=== PATIENT | female | born 1960 | race African-American/Black ===

== ENCOUNTER 2018-05-28 10:56 | Inpatient (IN) | payer MEDICARE, OTHER ==
[2018-05-28] MEDS: SOD CHLORIDE 0.9% 500 ML IV (11:38)
[2018-05-28 12:21] LABS: WHITE BLOOD COUNT 5.1 10^3/ul (4.8-10.8)
[2018-05-28 12:21] LABS: ADD MAN DIFF? NO; BASOPHILS % 0.4 % (0.0-2.0); EOSINOPHILS % 0.6 % (0.0-7.0); HEMOGLOBIN 15.4 g/dl (12.0-16.0); LYMPHOCYTES # 2.3 10^3/ul (0.8-2.9); LYMPHOCYTES % 45.2 % (15.0-51.0); MEAN CORPUSCULAR HEMOGLOBIN 28.3 pg (29.0-33.0); MEAN CORPUSCULAR HGB CONC 34.2 g/dl (32.0-37.0); MEAN CORPUSCULAR VOLUME 82.7 fl (82.0-101.0); MEAN PLATELET VOLUME 10.2 fl (7.4-10.4); MONOCYTE # 0.6 10^3/ul (0.3-0.9); MONOCYTES % 11.6 % (0.0-11.0); NEUTROPHIL # 2.1 10^3/ul (1.6-7.5); NEUTROPHILS % 41.8 % (39.0-77.0); PLATELET COUNT 304 10^3/UL (140-415); RED BLOOD COUNT 5.44 10^6/ul (4.20-5.40); RED CELL DISTRIBUTION WIDTH 12.2 % (11.5-14.5)
[2018-05-28 12:37] LABS: ADD UMIC YES; UR ASCORBIC ACID NEGATIVE (NEGATIVE); UR BACTERIA FEW /HPF (NONE SEEN); UR BILIRUBIN (Dip) NEGATIVE (NEGATIVE); UR BLOOD (Dip) NEGATIVE (NEGATIVE); UR CLARITY SLIGHTLY CLOUDY (CLEAR); UR COLOR YELLOW (YELLOW); UR GLUCOSE (Dip) NEGATIVE (NEGATIVE); UR KETONES (Dip) NEGATIVE (NEGATIVE); UR LEUKOCYTE ESTERASE (Dip) 3+ Leu/ul (NEGATIVE); UR MUCUS FEW /HPF (NONE SEEN); UR NITRITE (Dip) NEGATIVE (NEGATIVE); UR NONSQUAMOUS EPITHELIAL CELL 3 /HPF (NONE SEEN); UR RBC 4 /HPF (0-5); UR SQUAMOUS EPITHELIAL CELL FEW /HPF (FEW); UR TOTAL PROTEIN (Dip) NEGATIVE (NEGATIVE); UR UROBILINOGEN (Dip) NEGATIVE (NEGATIVE); UR WBC 56 /HPF (0-5)
[2018-05-28 12:38] LABS: ANION GAP 15 (5-13); BLOOD UREA NITROGEN 16 mg/dl (7-20); CALCIUM 10.4 mg/dl (8.4-10.2); CARBON DIOXIDE 26 mmol/L (21-31); CHLORIDE 102 mmol/L (97-110); CREATININE 1.06 mg/dl (0.44-1.00); Estimated GFR > 60 mL/min (>60); GLUCOSE 93 mg/dl (70-220); POTASSIUM 3.8 mmol/L (3.5-5.1); SODIUM 143 mmol/L (135-144)
[2018-05-28 12:49] LABS: TROPONIN-I < 0.012 ng/ml (0.000-0.120)
[2018-05-28] MEDS ORDERED: ACETAMINOPHEN 325 MG TAB PO ×2 (14:00→18:00)
[2018-05-28] MEDS ORDERED: ONDANSETRON 4 MG INJ IV ×2 (14:00→18:00)
[2018-05-28] MEDS: VENLAFAXINE (XR) 75 MG CAP PO (18:00)
[2018-05-28] MEDS ORDERED: hydrALAzine 20 MG INJ IV (18:00)
[2018-05-28] MEDS: SOD CHLORIDE 0.9% 1,000 ML IV ×2 (18:38→21:30)
[2018-05-28 19:31] LABS: TROPONIN-I < 0.012 ng/ml (0.000-0.120)
[2018-05-28] MEDS ORDERED: LEVALBUTEROL (NEB) 0.63 MG/3 ML AMP HHN (20:00)
[2018-05-28] MEDS: CYCLOSPORINE 0.05% OPH DROPERETTE BOTH EYES (21:33)
[2018-05-28] MEDS: traMADol 50 MG TAB PO (21:33)
[2018-05-29 01:19] LABS: TROPONIN-I < 0.012 ng/ml (0.000-0.120)
[2018-05-29 05:35] LABS: ADD MAN DIFF? NO
[2018-05-29 05:59] LABS: ABNORMAL IP MESSAGE 1; BASOPHILS % 0.3 % (0.0-2.0); HEMATOCRIT 36.9 % (37.0-47.0); HEMOGLOBIN 12.3 g/dl (12.0-16.0); LYMPHOCYTES # 2.5 10^3/ul (0.8-2.9); MEAN CORPUSCULAR HEMOGLOBIN 28.3 pg (29.0-33.0); MEAN CORPUSCULAR HGB CONC 33.3 g/dl (32.0-37.0); MEAN CORPUSCULAR VOLUME 84.8 fl (82.0-101.0); MEAN PLATELET VOLUME 10.3 fl (7.4-10.4); MONOCYTE # 0.5 10^3/ul (0.3-0.9); MONOCYTES % 12.2 % (0.0-11.0); NEUTROPHILS % 24.2 % (39.0-77.0); PLATELET COUNT 250 10^3/UL (140-415); RED BLOOD COUNT 4.35 10^6/ul (4.20-5.40); RED CELL DISTRIBUTION WIDTH 12.2 % (11.5-14.5)
[2018-05-29 06:04] LABS: POSITIVE DIFF @See below
[2018-05-29] MEDS: PANTOPRAZOLE (EC) 40 MG TAB PO ×3 (06:30→19:33)
[2018-05-29 06:58] LABS: ALANINE AMINOTRANSFERASE 47 IU/L (13-69); ALBUMIN 3.6 g/dl (3.3-4.9); ALBUMIN/GLOBULIN RATIO 1.16; ALKALINE PHOSPHATASE 65 IU/L (42-121); ANION GAP 8 (5-13); ASPARTATE AMINO TRANSFERASE 39 IU/L (15-46); BILIRUBIN,INDIRECT 0.3 mg/dl (0-1.1); BILIRUBIN,TOTAL 0.3 mg/dl (0.2-1.3); BLOOD UREA NITROGEN 18 mg/dl (7-20); CALCIUM 9.3 mg/dl (8.4-10.2); CARBON DIOXIDE 31 mmol/L (21-31); CHLORIDE 104 mmol/L (97-110); CREATININE 1.01 mg/dl (0.44-1.00); Estimated GFR > 60 mL/min (>60); GLUCOSE 109 mg/dl (70-220); MAGNESIUM 1.9 mg/dl (1.7-2.5); POTASSIUM 3.9 mmol/L (3.5-5.1); SODIUM 143 mmol/L (135-144); TOTAL PROTEIN 6.7 g/dl (6.1-8.1)
[2018-05-29] MEDS: SOD CHLORIDE 0.9% 1,000 ML IV (07:36)
[2018-05-29] MEDS: VENLAFAXINE (XR) 75 MG CAP PO ×2 (08:36→11:59)
[2018-05-29] MEDS: CYCLOSPORINE 0.05% OPH DROPERETTE BOTH EYES ×3 (08:37→22:11)
[2018-05-29] MEDS: VERAPAMIL (SR) 240 MG TAB PO ×2 (09:59→12:53)
[2018-05-29] MEDS: traMADol 50 MG TAB PO ×2 (13:01→20:44)
[2018-05-29] MEDS: MAGNESIUM SULFATE 2 GM/50 ML 50 ML IVPB (17:59)
[2018-05-29] MEDS: POTASSIUM CHLORIDE (SR) 10 MEQ TAB PO (18:00)
[2018-05-30] MEDS: traMADol 50 MG TAB PO ×4 (04:34→23:55)
[2018-05-30 05:48] LABS: WHITE BLOOD COUNT 3.6 10^3/ul (4.8-10.8)
[2018-05-30 05:48] LABS: ABNORMAL IP MESSAGE 1; HEMATOCRIT 34.7 % (37.0-47.0); HEMOGLOBIN 11.6 g/dl (12.0-16.0); MEAN CORPUSCULAR HEMOGLOBIN 28.6 pg (29.0-33.0); MEAN CORPUSCULAR HGB CONC 33.4 g/dl (32.0-37.0); MEAN CORPUSCULAR VOLUME 85.5 fl (82.0-101.0); MEAN PLATELET VOLUME 10.1 fl (7.4-10.4); PLATELET COUNT 229 10^3/UL (140-415); RED BLOOD COUNT 4.06 10^6/ul (4.20-5.40); RED CELL DISTRIBUTION WIDTH 12.2 % (11.5-14.5)
[2018-05-30 05:50] LABS: ADD MAN DIFF? YES; POSITIVE DIFF @See below
[2018-05-30 06:03] LABS: IRON 72 ug/dl (35-150)
[2018-05-30 06:08] LABS: ANION GAP 7 (5-13); BLOOD UREA NITROGEN 18 mg/dl (7-20); CALCIUM 8.8 mg/dl (8.4-10.2); CARBON DIOXIDE 33 mmol/L (21-31); CHLORIDE 103 mmol/L (97-110); CREATININE 1.06 mg/dl (0.44-1.00); Estimated GFR > 60 mL/min (>60); GLUCOSE 127 mg/dl (70-220); POTASSIUM 4.1 mmol/L (3.5-5.1); SODIUM 143 mmol/L (135-144)
[2018-05-30 06:12] LABS: % IRON SATURATION 25 % SAT (22-52); TOTAL IRON BINDING CAPACITY 292 ug/dl (241-421)
[2018-05-30 06:16] LABS: MAGNESIUM 2.4 mg/dl (1.7-2.5)
[2018-05-30] MEDS: PANTOPRAZOLE (EC) 40 MG TAB PO ×3 (06:49→08:30)
[2018-05-30 07:16] LABS: FOLATE 3.9 ng/ml (2.8-20.0)
[2018-05-30 07:23] LABS: ANISOCYTOSIS 1+ (0-0); EOSINOPHILS % (M) 3 % (0-7); LYMPHOCYTES #M 2.3 10^3/ul (0.8-2.9); LYMPHOCYTES % (M) 65 % (15-51); MICROCYTOSIS 1+ (0-0); MONOCYTE #M 0.1 10^3/ul (0.3-0.9); MONOCYTES % (M) 5 % (0-11); PLATELET ESTIMATE NORMAL; SEGMENTED NEUTROPHILS (M) % 27 % (39-77); SMUDGE%M 25 % (0-0)
[2018-05-30] MEDS: VERAPAMIL (SR) 240 MG TAB PO (08:30)
[2018-05-30] MEDS: VENLAFAXINE (XR) 75 MG CAP PO (08:30)
[2018-05-30] MEDS: CYCLOSPORINE 0.05% OPH DROPERETTE BOTH EYES ×2 (09:00→20:45)
[2018-05-31 06:13] LABS: ADD MAN DIFF? NO
[2018-05-31 06:20] LABS: WHITE BLOOD COUNT 3.5 10^3/ul (4.8-10.8)
[2018-05-31 06:20] LABS: ABNORMAL IP MESSAGE 1; BASOPHILS % 0.3 % (0.0-2.0); EOSINOPHILS # 0.1 10^3/ul (0.0-0.5); EOSINOPHILS % 2.8 % (0.0-7.0); HEMOGLOBIN 11.8 g/dl (12.0-16.0); LYMPHOCYTES % 57.5 % (15.0-51.0); MEAN CORPUSCULAR HEMOGLOBIN 28.6 pg (29.0-33.0); MEAN CORPUSCULAR HGB CONC 33.7 g/dl (32.0-37.0); MEAN PLATELET VOLUME 10.2 fl (7.4-10.4); MONOCYTE # 0.4 10^3/ul (0.3-0.9); MONOCYTES % 10.8 % (0.0-11.0); NEUTROPHILS % 28.3 % (39.0-77.0); PLATELET COUNT 229 10^3/UL (140-415); RED BLOOD COUNT 4.12 10^6/ul (4.20-5.40); RED CELL DISTRIBUTION WIDTH 12.3 % (11.5-14.5)
[2018-05-31 06:34] LABS: POSITIVE DIFF @See below
[2018-05-31 06:55] LABS: ALANINE AMINOTRANSFERASE 39 IU/L (13-69); ALBUMIN 3.6 g/dl (3.3-4.9); ALBUMIN/GLOBULIN RATIO 1.28; ALKALINE PHOSPHATASE 60 IU/L (42-121); ANION GAP 9 (5-13); ASPARTATE AMINO TRANSFERASE 35 IU/L (15-46); BILIRUBIN,INDIRECT 0.2 mg/dl (0-1.1); BILIRUBIN,TOTAL 0.2 mg/dl (0.2-1.3); BLOOD UREA NITROGEN 19 mg/dl (7-20); CALCIUM 9.2 mg/dl (8.4-10.2); CARBON DIOXIDE 33 mmol/L (21-31); CHLORIDE 103 mmol/L (97-110); CREATININE 0.93 mg/dl (0.44-1.00); Estimated GFR > 60 mL/min (>60); GLUCOSE 91 mg/dl (70-220); MAGNESIUM 2.3 mg/dl (1.7-2.5); POTASSIUM 4.1 mmol/L (3.5-5.1); SODIUM 145 mmol/L (135-144); TOTAL PROTEIN 6.4 g/dl (6.1-8.1)
[2018-05-31] MEDS: VERAPAMIL (SR) 240 MG TAB PO (08:06)
[2018-05-31] MEDS: VENLAFAXINE (XR) 75 MG CAP PO (08:06)
[2018-05-31] MEDS: PANTOPRAZOLE (EC) 40 MG TAB PO (08:06)
[2018-05-31] MEDS: traMADol 50 MG TAB PO ×3 (08:08→20:47)
[2018-05-31] MEDS: CYCLOSPORINE 0.05% OPH DROPERETTE BOTH EYES (23:29)
[2018-06-01] MEDS: TRIAMCINOLONE ACET 0.1% 15 GM CR TOP ×2 (00:10→08:31)
[2018-06-01] MEDS: traMADol 50 MG TAB PO ×3 (02:34→15:13)
[2018-06-01 06:00] LABS: ADD MAN DIFF? NO
[2018-06-01 06:07] LABS: BASOPHILS % 0.3 % (0.0-2.0); EOSINOPHILS # 0.1 10^3/ul (0.0-0.5); EOSINOPHILS % 2.1 % (0.0-7.0); HEMATOCRIT 34.1 % (37.0-47.0); HEMOGLOBIN 11.4 g/dl (12.0-16.0); LYMPHOCYTES # 2.1 10^3/ul (0.8-2.9); LYMPHOCYTES % 55.7 % (15.0-51.0); MEAN CORPUSCULAR HEMOGLOBIN 28.4 pg (29.0-33.0); MEAN CORPUSCULAR HGB CONC 33.4 g/dl (32.0-37.0); MONOCYTE # 0.4 10^3/ul (0.3-0.9); MONOCYTES % 11.6 % (0.0-11.0); NEUTROPHIL # 1.1 10^3/ul (1.6-7.5); PLATELET COUNT 225 10^3/UL (140-415); RED BLOOD COUNT 4.01 10^6/ul (4.20-5.40)
[2018-06-01 06:07] LABS: WHITE BLOOD COUNT 3.8 10^3/ul (4.8-10.8)
[2018-06-01 06:52] LABS: ALANINE AMINOTRANSFERASE 36 IU/L (13-69); ALBUMIN 3.4 g/dl (3.3-4.9); ALBUMIN/GLOBULIN RATIO 1.17; ALKALINE PHOSPHATASE 68 IU/L (42-121); ANION GAP 9 (5-13); ASPARTATE AMINO TRANSFERASE 33 IU/L (15-46); BILIRUBIN,INDIRECT 0.2 mg/dl (0-1.1); BILIRUBIN,TOTAL 0.2 mg/dl (0.2-1.3); BLOOD UREA NITROGEN 23 mg/dl (7-20); CALCIUM 9.2 mg/dl (8.4-10.2); CARBON DIOXIDE 31 mmol/L (21-31); CHLORIDE 103 mmol/L (97-110); CREATININE 0.95 mg/dl (0.44-1.00); Estimated GFR > 60 mL/min (>60); GLUCOSE 120 mg/dl (70-220); POTASSIUM 3.8 mmol/L (3.5-5.1); SODIUM 143 mmol/L (135-144); TOTAL PROTEIN 6.3 g/dl (6.1-8.1)
[2018-06-01] MEDS: PANTOPRAZOLE (EC) 40 MG TAB PO (08:30)
[2018-06-01] MEDS: VERAPAMIL (SR) 240 MG TAB PO (08:30)
[2018-06-01] MEDS: VENLAFAXINE (XR) 75 MG CAP PO (08:30)
[2018-06-01] MEDS: MAGNESIUM OXIDE 400 MG TAB PO (09:51)
== END 2018-06-01 16:21 | disposition home or self-care (01) | DRG 312 ==
LOC: 6WM 05-29 19:37 → E/R 10:56 → 6WM 14:00
DX: R55 Syncope and collapse (principal); I47.1 Supraventricular tachycardia; N39.0 Urinary tract infection, site not specified; I10 Essential (primary) hypertension; E11.9 Type 2 diabetes mellitus without complications; E66.9 Obesity, unspecified; Z68.31 Body mass index [BMI] 31.0-31.9, adult; G25.3 Myoclonus; J45.909 Unspecified asthma, uncomplicated; L23.9 Allergic contact dermatitis, unspecified cause; M79.7 Fibromyalgia; H04.129 Dry eye syndrome of unspecified lacrimal gland; K21.9 Gastro-esophageal reflux disease without esophagitis; Z86.73 Personal history of transient ischemic attack (TIA), and cerebral infarction without residual deficits
CPT/HCPCS: 36415; 70450; 70551; 71045; 80048; 80053; 81001; 82607; 82746; 83540; 83735; 84443; 84484; 85025; 87086; 93005; 93306; 93880; 99285-25; G0378

== ENCOUNTER 2018-06-18 22:13 | Inpatient (IN) | payer MEDICARE, OTHER ==
[2018-06-19 00:42] LABS: ADD MAN DIFF? NO
[2018-06-19 00:46] LABS: BASOPHILS % 0.2 % (0.0-2.0); EOSINOPHILS # 0.1 10^3/ul (0.0-0.5); EOSINOPHILS % 1.2 % (0.0-7.0); HEMATOCRIT 41.6 % (37.0-47.0); HEMOGLOBIN 14.1 g/dl (12.0-16.0); LYMPHOCYTES # 2.5 10^3/ul (0.8-2.9); LYMPHOCYTES % 49.8 % (15.0-51.0); MEAN CORPUSCULAR HEMOGLOBIN 28.4 pg (29.0-33.0); MEAN CORPUSCULAR HGB CONC 33.9 g/dl (32.0-37.0); MEAN CORPUSCULAR VOLUME 83.7 fl (82.0-101.0); MONOCYTE # 0.5 10^3/ul (0.3-0.9); NEUTROPHIL # 1.9 10^3/ul (1.6-7.5); NEUTROPHILS % 38.4 % (39.0-77.0); PLATELET COUNT 319 10^3/UL (140-415); RED BLOOD COUNT 4.97 10^6/ul (4.20-5.40); RED CELL DISTRIBUTION WIDTH 11.9 % (11.5-14.5)
[2018-06-19 01:03] LABS: ALANINE AMINOTRANSFERASE 55 IU/L (13-69); ALBUMIN 4.6 g/dl (3.3-4.9); ALBUMIN/GLOBULIN RATIO 1.12; ALKALINE PHOSPHATASE 91 IU/L (42-121); ANION GAP 13 (5-13); ASPARTATE AMINO TRANSFERASE 48 IU/L (15-46); BILIRUBIN,INDIRECT 0.3 mg/dl (0-1.1); BILIRUBIN,TOTAL 0.3 mg/dl (0.2-1.3); BLOOD UREA NITROGEN 20 mg/dl (7-20); CALCIUM 9.9 mg/dl (8.4-10.2); CARBON DIOXIDE 28 mmol/L (21-31); CHLORIDE 102 mmol/L (97-110); CREATININE 1.05 mg/dl (0.44-1.00); Estimated GFR > 60 mL/min (>60); GLUCOSE 102 mg/dl (70-220); SODIUM 143 mmol/L (135-144); TOTAL PROTEIN 8.7 g/dl (6.1-8.1)
[2018-06-19 01:15] LABS: B-TYPE NATRIURETIC PEPTIDE 30 PG/ML (0-125); TROPONIN-I < 0.012 ng/ml (0.000-0.120)
[2018-06-19] MEDS: SOD CHLORIDE 0.9% 500 ML IV (02:54)
[2018-06-19] MEDS: traMADol 50 MG TAB PO ×2 (03:35→21:25)
[2018-06-19] MEDS ORDERED: ACETAMINOPHEN 325 MG TAB PO (07:00)
[2018-06-19] MEDS: PANTOPRAZOLE (EC) 40 MG TAB PO ×2 (07:07→07:12)
[2018-06-19 07:54] LABS: CREATINE KINASE 78 IU/L (23-200)
[2018-06-19 08:04] LABS: CK INDEX 0.7; CK-MB 0.57 ng/ml (0.0-2.4); TROPONIN-I < 0.012 ng/ml (0.000-0.120)
[2018-06-19] MEDS: VENLAFAXINE (XR) 37.5 MG CAP PO (08:22)
[2018-06-19] MEDS: HYDROCHLOROTHIAZIDE 25 MG TAB PO (08:22)
[2018-06-19 12:32] LABS: CREATINE KINASE 68 IU/L (23-200)
[2018-06-19 12:32] LABS: MAGNESIUM 2.3 mg/dl (1.7-2.5)
[2018-06-19 12:41] LABS: CK INDEX 0.8; CK-MB 0.53 ng/ml (0.0-2.4); TROPONIN-I < 0.012 ng/ml (0.000-0.120)
[2018-06-19] MEDS: CYCLOSPORINE 0.05% OPH DROPERETTE BOTH EYES (20:20)
[2018-06-19] MEDS: VERAPAMIL (SR) 240 MG TAB PO (20:24)
[2018-06-19] MEDS ORDERED: VERAPAMIL (SR) 240 MG TAB PO (21:00)
[2018-06-20] MEDS: CYCLOSPORINE 0.05% OPH DROPERETTE BOTH EYES (08:49)
[2018-06-20] MEDS: VENLAFAXINE (XR) 75 MG CAP PO (08:49)
[2018-06-20] MEDS: HYDROCHLOROTHIAZIDE 25 MG TAB PO (08:50)
[2018-06-20] MEDS: VERAPAMIL (SR) 240 MG TAB PO ×2 (08:50→20:20)
[2018-06-20 10:17] LABS: ANION GAP 12 (5-13); BLOOD UREA NITROGEN 19 mg/dl (7-20); CALCIUM 9.7 mg/dl (8.4-10.2); CARBON DIOXIDE 31 mmol/L (21-31); CHLORIDE 101 mmol/L (97-110); CREATININE 0.93 mg/dl (0.44-1.00); Estimated GFR > 60 mL/min (>60); GLUCOSE 114 mg/dl (70-220); MAGNESIUM 2.1 mg/dl (1.7-2.5); POTASSIUM 3.8 mmol/L (3.5-5.1); SODIUM 144 mmol/L (135-144)
[2018-06-20] MEDS: POTASSIUM CHLORIDE (SR) 20 MEQ TAB PO (13:48)
[2018-06-20] MEDS: traMADol 50 MG TAB PO (18:04)
[2018-06-20] MEDS ORDERED: ALBUTEROL HFA 8 GM INHALER INH (21:30)
[2018-06-21] MEDS: PANTOPRAZOLE (EC) 40 MG TAB PO (06:19)
[2018-06-21 06:43] LABS: ANION GAP 11 (5-13); BLOOD UREA NITROGEN 20 mg/dl (7-20); CALCIUM 9.6 mg/dl (8.4-10.2); CARBON DIOXIDE 33 mmol/L (21-31); CHLORIDE 99 mmol/L (97-110); CREATININE 1.01 mg/dl (0.44-1.00); Estimated GFR > 60 mL/min (>60); GLUCOSE 106 mg/dl (70-220); POTASSIUM 3.7 mmol/L (3.5-5.1); SODIUM 143 mmol/L (135-144)
[2018-06-21] MEDS: VERAPAMIL (SR) 240 MG TAB PO ×2 (08:57→21:19)
[2018-06-21] MEDS: POTASSIUM CHLORIDE (SR) 20 MEQ TAB PO (08:58)
[2018-06-21] MEDS: HYDROCHLOROTHIAZIDE 25 MG TAB PO (08:59)
[2018-06-21] MEDS: CYCLOSPORINE 0.05% OPH DROPERETTE BOTH EYES (08:59)
[2018-06-21] MEDS: VENLAFAXINE (XR) 75 MG CAP PO (09:01)
[2018-06-21] MEDS: traMADol 50 MG TAB PO (09:04)
[2018-06-21 12:32] LABS: TROPONIN-I < 0.012 ng/ml (0.000-0.120)
[2018-06-21] MEDS: CALCIUM CARBONATE 500 MG CHEW TAB PO ×3 (13:28→18:09)
[2018-06-21] MEDS: ENOXAPARIN 30 MG/0.3 ML SYG SC (15:35)
[2018-06-21 20:32] LABS: TROPONIN-I < 0.012 ng/ml (0.000-0.120)
[2018-06-22] MEDS: PANTOPRAZOLE (EC) 40 MG TAB PO (06:13)
[2018-06-22] MEDS: CALCIUM CARBONATE 500 MG CHEW TAB PO ×2 (08:37→15:15)
[2018-06-22] MEDS: VERAPAMIL (SR) 240 MG TAB PO (08:38)
[2018-06-22] MEDS: HYDROCHLOROTHIAZIDE 25 MG TAB PO (08:38)
[2018-06-22] MEDS: VENLAFAXINE (XR) 75 MG CAP PO (08:38)
[2018-06-22] MEDS: traMADol 50 MG TAB PO (08:53)
[2018-06-22] MEDS: ENOXAPARIN 30 MG/0.3 ML SYG SC (08:59)
[2018-06-22] MEDS: CYCLOSPORINE 0.05% OPH DROPERETTE BOTH EYES (10:01)
[2018-06-22] MEDS: POTASSIUM CHLORIDE (SR) 20 MEQ TAB PO (13:35)
== END 2018-06-22 18:55 | disposition home or self-care (01) | DRG 309 ==
LOC: E/R 22:13 → TEL 06-19 02:26
DX: R00.0 Tachycardia, unspecified (principal); I50.30 Unspecified diastolic (congestive) heart failure; I11.0 Hypertensive heart disease with heart failure; R07.89 Other chest pain; J45.909 Unspecified asthma, uncomplicated; M79.7 Fibromyalgia; F32.9 Major depressive disorder, single episode, unspecified; D86.9 Sarcoidosis, unspecified; K21.9 Gastro-esophageal reflux disease without esophagitis; E66.9 Obesity, unspecified; E11.9 Type 2 diabetes mellitus without complications; Z68.35 Body mass index [BMI] 35.0-35.9, adult; Z88.0 Allergy status to penicillin; Z87.891 Personal history of nicotine dependence; Z82.3 Family history of stroke; Z82.49 Family history of ischemic heart disease and other diseases of the circulatory system; R00.1 Bradycardia, unspecified
CPT/HCPCS: 36415; 71045; 80048; 80053; 82550; 82553; 83735; 83880; 84484; 85025; 87081; 93005; 99285-25; G0378